=== PATIENT | male | born 1980 | race Caucasian/White ===

== ENCOUNTER 2017-07-25 11:50 | Outpatient (CLI) | payer OTHER ==
--- NOTE | 2017-07-25 18:01 | XRAY Report ---
THREE VIEW RIGHT SHOULDER: 07/25/2017 CLINICAL INDICATION: Pain. FINDINGS: Internal and external rotational views and a scapular Y view of the right shoulder demonstrate no evidence of fracture or dislocation. The joint spaces are preserved. No radiopaque foreign body is seen in the soft tissues. IMPRESSION: NORMAL RIGHT SHOULDER. TD: 07/25/2017 18:00
--- NOTE | 2017-07-25 18:01 | XRAY Report ---
COMPLETE CERVICAL SPINE: 07/25/2017 CLINICAL INDICATION: Neck pain. FINDINGS: AP, lateral, oblique, odontoid views of the cervical spine demonstrate anterior plate and screw fusion spanning C5 through C7. There is no evidence of fracture or hardware complication. The prevertebral soft tissues are unremarkable. IMPRESSION: PREVIOUS LOWER CERVICAL FUSION. NO EVIDENCE OF FRACTURE. TD: 07/25/2017 18:01
== END 2017-07-25 11:51 | disposition home or self-care (01) ==
LOC: DI.S 11:50
PROVIDERS: ATTEND Nurse Practitioner Family
DX: M25.511 Pain in right shoulder (principal); M54.2 Cervicalgia; Z98.1 Arthrodesis status
CPT/HCPCS: 72050

== ENCOUNTER 2017-12-18 19:52 | Emergency (ER) | payer OTHER ==
--- NOTE | 2017-12-18 21:24 | ED Physician Documentation ---
PD HPI NECK PAIN - Stated complaint Stated Complaint: NECK PX - Chief complaint Chief Complaint: Ext Problem - History obtained from History obtained from: Patient - History of Present Illness Timing - onset: How many days ago (2-3) Timing - duration: Days (2-3) Timing - details: Gradual onset, Still present Location: Lower, Left Quality: Pain, Spasm Associated symptoms: No: Fever, Weakness, Numbness Similar symptoms before: Diagnosis (has had neck pains from disc problem in the past. Neck pain often. Has it flare up at times and has gotten Toradol shots to help.) Recently seen: Not recently seen Review of Systems Constitutional: denies: Fever Nose: denies: Rhinorrhea / runny nose, Congestion Throat: denies: Sore throat Cardiac: denies: Chest pain / pressure, Palpitations Respiratory: denies: Cough GI: denies: Abdominal Pain, Nausea, Vomiting Skin: denies: Rash, Lesions Musculoskeletal: reports: Neck pain (does not radiate to arms). denies: Back pain Neurologic: denies: Focal weakness, Numbness PD PAST MEDICAL HISTORY - Past Medical History Past Medical History: Yes Neuro: None Musculoskeletal: Other (neck pain often) - Past Surgical History Neuro: Other - Present Medications Home Medications: Ambulatory Orders Medication Instructions Recorded Confirmed Gabapentin 1 tab PO PRN PRN 12/18/17 12/18/17 Tramadol HCl 50 mg PO Q6H PRN #20 tablet 12/18/17 - Allergies Allergies/Adverse Reactions: Allergies Allergy/AdvReac Type Severity Reaction Status Date / Time No Known Drug Allergies Allergy Verified 12/18/17 20:20 - Social History Does the pt smoke?: No Smoking Status: Never smoker - Immunizations Immunizations are current?: Yes PD ED PE NORMAL - Vitals Vital signs reviewed: Yes - General General: Alert and oriented X 3, Well developed/nourished, Other (appears in pain. has towel around neck to act as collar/brace. Holding neck muscles stiffly. ) - Neck Neck: Supple, no meningeal sign, No adenopathy, Other (left paracervical muscle tenderness. No rash nor sores. ) - Derm Derm: Normal color, Warm and dry, No rash - Neuro Neuro: Alert and oriented X 3, No motor deficit, No sensory deficit, Normal speech Results - Vitals Vitals: Oxygen O2 Source Room air PD MEDICAL DECISION MAKING - ED course Complexity details: re-evaluated patient (did trigger point injection with lido2 % and Kenalog on left lower paracervical muscle/trapezius. ), considered differential, d/w patient - Sepsis Event Vital Signs: Oxygen O2 Source Room air Departure - Departure Disposition: 01 Home, Self Care Clinical Impression: Acute neck pain Condition: Stable Record reviewed to determine appropriate education?: Yes Instructions: ED Neck Pain No Trauma Follow-Up: Edita Espino ARNP [Primary Care Provider] - Prescriptions: Tramadol HCl 50 mg PO Q6H PRN #20 tablet PRN Reason: Pain Comments: Heat and gentle stretching for the neck to reduce spasming. Use some ibuprofen or naproxen twice daily for the next several days. Add the muscle relaxant you have at home if needed for stiffness and spasm. Add hydrocodone from the starter pack in the next day or tramadol prescription if needed for worse pain. Follow-up with your primary care if not improved over the next several days to week. Forms: Activity restrictions Discharge Date/Time: 12/18/17 22:15
[2017-12-18] MEDS ORDERED: KETOROLAC 60 MG/2 ML VIAL IM STA (21:30)
[2017-12-18] MEDS ORDERED: TRIAMCINOLONE 40 MG/ML VIAL IM STA (21:31)
[2017-12-18] MEDS ORDERED: LIDOCAINE 2% 10 ML MDV SUBQ STA (21:31)
[2017-12-18] MEDS ORDERED: HYDROcod/ACET 5/325 Prepack 4 PO STA (21:48)
[2017-12-18 22:15] VITALS: BP 118/85
== END 2017-12-18 22:15 | disposition home or self-care (01) ==
LOC: ED 19:52
DX: M54.2 Cervicalgia (principal)
CPT/HCPCS: 20552; 96372; 99283

== ENCOUNTER 2020-05-13 23:13 | Emergency (ER) | payer OTHER ==
[2020-05-13] MEDS ORDERED: KETOROLAC 30 MG/ML VIAL IVP STA (23:36)
--- NOTE | 2020-05-13 23:39 | ED Physician Documentation ---
PD HPI ABD PAIN - Stated complaint Stated Complaint: STOMACH PX - Chief complaint Chief Complaint: Abd Pain - History obtained from History obtained from: Patient - History of Present Illness Timing - onset: Yesterday Timing - duration: Days (2) Timing - details: Gradual onset, Still present Quality: Sharp, Pain Location: Suprapubic Radiation: Lower back Improved by: Laying still Worsened by: Moving, Position, Palpation Associated symptoms: Nausea, Hematochezia. No: Vomiting Similar symptoms before: Diagnosis (diverticulitis) Recently seen: Clinic - Additional information Additional information: 39-year-old male with a history of diverticulitis twice previously most recently in March of this year has developed suprapubic pain in his lower abdomen and he has had some blood in his stool. He indicates that these pains began yesterday and are similar to what he has had previously with diverticulitis. He had one episode about 5 years ago he had another episode in March of this year and he has been in to see his pigment pusher in follow-up since then. He was noted to have some scar tissue around where the infection was. Review of Systems Constitutional: reports: Myalgias, Fatigue. denies: Fever Eyes: denies: Decreased vision Ears: denies: Ear pain Nose: denies: Congestion Throat: denies: Sore throat Cardiac: denies: Chest pain / pressure, Palpitations Respiratory: denies: Dyspnea, Cough GI: reports: Abdominal Pain, Nausea, Diarrhea, Bloody / black stool : denies: Dysuria, Frequency Skin: denies: Rash Musculoskeletal: reports: Back pain. denies: Neck pain, Extremity pain PD PAST MEDICAL HISTORY - Past Medical History Past Medical History: Yes Neuro: None Endocrine/Autoimmune: Other Musculoskeletal: Chronic back pain, Other Other Past Medical History: Diverticulitis. Cervial fx - Past Surgical History Past Surgical History: Yes Neuro: Other - Present Medications Home Medications: Ambulatory Orders Medication Instructions Recorded Confirmed Gabapentin 1 tab PO PRN PRN 12/18/17 12/18/17 Tramadol HCl 50 mg PO Q6H PRN #20 tablet 12/18/17 Gabapentin 200 mg PO BID #30 capsule 08/18/19 Ciprofloxacin HCl [Cipro] 500 mg PO BID #20 tablet 05/14/20 metroNIDAZOLE [Flagyl] 500 mg PO BID #20 tablet 05/14/20 traMADol [Ultram] 50 - 100 mg PO Q6H PRN #20 tablet 05/14/20 - Allergies Allergies/Adverse Reactions: Allergies Allergy/AdvReac Type Severity Reaction Status Date / Time No Known Drug Allergies Allergy Verified 05/13/20 23:25 - Social History Does the pt smoke?: No Smoking Status: Never smoker Does the pt drink ETOH?: No Does the pt have substance abuse?: Yes Substance Use and Type: Marijuana - Immunizations Immunizations are current?: Yes - POLST Patient has POLST: No PD ED PE NORMAL - Vitals Vital signs reviewed: Yes (hypertensive) - General General: Alert and oriented X 3, No acute distress, Well developed/nourished - HEENT HEENT: Atraumatic, PERRL, EOMI - Neck Neck: Supple, no meningeal sign, No bony TTP - Cardiac Cardiac: RRR, No murmur - Respiratory Respiratory: No respiratory distress, Clear bilaterally - Abdomen Abdomen: Normal bowel sounds, Soft, Non distended, No organomegaly, Other (There is garding tenderness to the lower abdomen bilaterally the upper abdomen is soft and "sore") - Back Back: No CVA TTP, No spinal TTP - Derm Derm: Normal color, Warm and dry, No rash - Extremities Extremities: No deformity, No edema - Neuro Neuro: Alert and oriented X 3, 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, No motor deficit, No sensory deficit, Normal speech Eye Opening: Spontaneous Motor: Obeys Commands Verbal: Oriented GCS Score: 15 - Psych Psych: Normal mood, Normal affect Results - Vitals Vitals: Vital Signs - 24 hr 05/13/20 05/13/20 05/14/20 23:23 23:26 01:25 Temperature 36.9 C 36.9 C 36.8 C Heart Rate 69 69 70 Respiratory 17 17 18 Rate Blood Pressure 143/85 H 143/85 H 143/82 H O2 Saturation 96 96 97 Oxygen O2 Source Room air - Labs Labs: Laboratory Tests 05/13/20 05/13/20 05/13/20 23:34 23:34 23:55 WBC 14.2 H RBC 4.73 Hgb 15.0 Hct 44.0 MCV 93.0 MCH 31.7 H MCHC 34.1 RDW 11.9 L Plt Count 298 MPV 10.0 Neut # (Auto) 11.9 H Lymph # (Auto) 1.2 L [place] # (Auto) 0.9 Eos # (Auto) 0.1 Baso # (Auto) 0.1 Absolute Nucleated RBC 0.00 Nucleated RBC % 0.0 Sodium 137 Potassium 3.9 Chloride 105 Carbon Dioxide 24 Anion Gap 8.0 BUN 19 Creatinine 1.1 Estimated GFR (MDRD) 74 L Glucose 110 H Lactic Acid 0.9 Calcium 8.9 Total Bilirubin 0.7 AST 25 ALT 46 Alkaline Phosphatase 87 Total Protein 7.2 Albumin 4.3 Globulin 2.9 Albumin/Globulin Ratio 1.5 Lipase 31 Urine Color Urine Clarity Urine pH Ur Specific [place] Urine Protein Urine Glucose (UA) Urine Ketones Urine Occult Blood Urine Nitrite Urine Bilirubin Urine Urobilinogen Ur Leukocyte Esterase Ur Microscopic Review Urine Culture Comments 05/13/20 23:55 WBC RBC Hgb Hct MCV MCH MCHC RDW Plt Count MPV Neut # (Auto) Lymph # (Auto) [place] # (Auto) Eos # (Auto) Baso # (Auto) Absolute Nucleated RBC Nucleated RBC % Sodium Potassium Chloride Carbon Dioxide Anion Gap BUN Creatinine Estimated GFR (MDRD) Glucose Lactic Acid Calcium Total Bilirubin AST ALT Alkaline Phosphatase Total Protein Albumin Globulin Albumin/Globulin Ratio Lipase Urine Color YELLOW Urine Clarity CLEAR Urine pH 6.5 Ur Specific [place] 1.025 Urine Protein NEGATIVE Urine Glucose (UA) NEGATIVE Urine Ketones NEGATIVE Urine Occult Blood NEGATIVE Urine Nitrite NEGATIVE Urine Bilirubin NEGATIVE Urine Urobilinogen 0.2 (NORMAL) Ur Leukocyte Esterase NEGATIVE Ur Microscopic Review NOT INDICATED Urine Culture Comments NOT INDICATED - Rads (name of study) CT ab pel with Radiology: Prelim report reviewed (Impression: 1. Sigmoid colon diverticulitis. No evidence of abscess formation or free intraperitoneal air.), EMP read indepedently, See rad report PD MEDICAL DECISION MAKING - ED course Complexity details: reviewed results, re-evaluated patient, considered differential, d/w patient ED course: 39-year-old male with a history of diverticulitis has an episode again of diverticulitis. CT scan reveals evidence of sigmoid diverticulitis and the patient is administered intravenous Cipro and oral Flagyl we will provide him with a course of antibiotic. He has prior long-term use of narcotic prefers not to use narcotic but does not refuse. Departure - Departure Disposition: 01 Home, Self Care Clinical Impression: Diverticulitis of gastrointestinal tract Condition: Stable Instructions: ED Diverticulitis Follow-Up: Vivian Mccauley MD [Physician No Access] - Prescriptions: Ciprofloxacin HCl [Cipro] 500 mg PO BID #20 tablet metroNIDAZOLE [Flagyl] 500 mg PO BID #20 tablet traMADol [Ultram] 50 - 100 mg PO Q6H PRN #20 tablet PRN Reason: Pain
[2020-05-13 23:49] LABS: BASOPHILS # (AUTO) 0.1 10^3/uL (0.0-0.1); BASOPHILS % (AUTO) 0.6 %; EOSINOPHILS # (AUTO) 0.1 10^3/uL (0.0-0.7); EOSINOPHILS % (AUTO) 0.4 %; LYMPHOCYTES # (AUTO) 1.2 10^3/uL (1.5-3.5); LYMPHOCYTES % (AUTO) 8.6 %; MEAN CORPUSCULAR HEMOGLOBIN 31.7 pg (27.0-31.0); MEAN CORPUSCULAR HGB CONC 34.1 g/dL (32.0-36.0); MONOCYTES # (AUTO) 0.9 10^3/uL (0.0-1.0); MONOCYTES % (AUTO) 6.2 %; NEUTROPHILS # (AUTO) 11.9 10^3/uL (1.5-6.6); NEUTROPHILS % (AUTO) 83.7 %; PLT - PLATELET COUNT 298 10^3/uL (130-450); RED BLOOD COUNT 4.73 10^6/uL (4.70-6.10); RED CELL DISTRIBUTION WIDTH 11.9 % (12.0-15.0); WHITE BLOOD COUNT 14.2 x10^3/uL (4.8-10.8)
[2020-05-13 23:59] LABS: BILIRUBIN,URINE NEGATIVE (NEGATIVE); GLUCOSE, URINE (UA) NEGATIVE (NEGATIVE); KETONES,URINE (UA) NEGATIVE (NEGATIVE); LEUKOCYTE ESTERASE, URINE NEGATIVE (NEGATIVE); NITRITE,URINE NEGATIVE (NEGATIVE); OCCULT BLOOD,URINE NEGATIVE (NEGATIVE); PH,URINE 6.5 PH (5.0-7.5); PROTEIN,URINE NEGATIVE (NEGATIVE); UROBILINOGEN,URINE 0.2 (NORMAL) E.U./dL (NORMAL)
[2020-05-14] MEDS ORDERED: IOVERSOL 320 100 ML VIAL IVP ONE ×2 (00:01→00:38)
[2020-05-14 00:02] LABS: ALBUMIN 4.3 g/dL (3.2-5.5); ALBUMIN/GLOBULIN RATIO 1.5 (1.0-2.2); BILIRUBIN,TOTAL 0.7 mg/dL (0.2-1.0); CALCIUM 8.9 mg/dL (8.5-10.3); CREATININE 1.1 mg/dL (0.6-1.2); TOTAL PROTEIN 7.2 g/dL (6.7-8.2)
[2020-05-14 00:02] LABS: CLARITY,URINE CLEAR (CLEAR)
[2020-05-14] MEDS ORDERED: CIPROFLOXACIN 400 MG/200 ML 400 MG/200 ML BAG IV STA (00:43)
[2020-05-14] MEDS ORDERED: SODIUM CHLORIDE 0.9% 1,000 ML IV STA (01:15)
[2020-05-14] MEDS ORDERED: metroNIDAZOLE 250 MG TABLET PO STA (01:15)
[2020-05-14 01:36] VITALS: BP 143/82
--- NOTE | 2020-05-14 09:36 | CT Report ---
PROCEDURE: Abdomen/Pelvis W INDICATIONS: suprapubic pain hx of diverticulitis CONTRAST: IV CONTRAST: Optiray 320 ml: 100 PO CONTRAST: *NO PO CONTRAST TECHNIQUE: After the administration of intravenous contrast, 5 mm thick sections acquired from the diaphragms to the symphysis. 5 mm thick coronal and sagittal reformats were acquired. For radiation dose reducti on, the following was used: automated exposure control, adjustment of mA and/or kV according to abhijeet ent size. COMPARISON: None. FINDINGS: Image quality: Excellent. ABDOMEN: Lung bases: Lung bases are clear. Heart size is normal. Solid organs: Liver and spleen are normal in size and enhancement. Gallbladder is unremarkable. Bi liary system is non dilated. Pancreas enhances normally. No adrenal nodules. Kidneys demonstrate n ormal size and enhancement, without hydronephrosis. Peritoneum and bowel: There is sigmoid diverticulitis. There is minimal fluid adjacent to the sigmoid with inflammatory change adjacent to the sigmoid. Multiple diverticuli are identified. No free air o r abscess cavity. No free fluid or air. Nodes and vessels: No retroperitoneal or mesenteric adenopathy by size criteria. Aorta and inferior vena cava are normal in size. Miscellaneous: No ventral hernias. PELVIS: Genitourinary: Bladder wall thickness is normal. Miscellaneous: No inguinal hernias or adenopathy. Bones: No suspicious bony lesions. No vertebral body compression fractures. IMPRESSION: Acute sigmoid diverticulitis. A preliminary report with the above findings was provided at the time of the study by [facility]. Reviewed by: Jose Gomez MD on 05/14/2020 9:35 AM PST Approved by: Jose Gomez MD on 05/14/2020 9:35 AM PST Station ID: [id number]
== END 2020-05-14 02:15 | disposition home or self-care (01) ==
LOC: ED 23:13
DX: K57.32 Diverticulitis of large intestine without perforation or abscess without bleeding (principal)
CPT/HCPCS: 36415; 74177; 80053; 81003; 83605; 83690; 85025; 87040; 96374; 96375; 99284; A9270; Q9967; 81001; 87086

== ENCOUNTER 2020-06-13 10:24 | Emergency (ER) | payer OTHER ==
--- NOTE | 2020-06-13 11:34 | XRAY Report ---
PROCEDURE: Finger(s) LT INDICATIONS: index sprain TECHNIQUE: AP hand, 3 views of the left finger(s) acquired. COMPARISON: None. FINDINGS: Bones: No fractures or dislocations. No suspicious bony lesions. Chronic appearing punctate calcif ic density projects adjacent to the ulnar styloid of unknown clinical significance. Soft tissues: No suspicious soft tissue calcifications. IMPRESSION: No fracture. If the patient's pain or other symptoms persist, consider further evaluation with MRI. Reviewed by: Dez Pandey MD on 06/13/2020 11:32 AM PST Approved by: Dez Pandey MD on 06/13/2020 11:32 AM PST Station ID: [id number]
--- NOTE | 2020-06-13 11:40 | ED Physician Documentation ---
PD HPI UPPER EXT INJURY - Stated complaint Stated Complaint: LT HAND INJ - Chief complaint Chief Complaint: Trauma Ext - History obtained from History obtained from: Patient - History of Present Illness Location: Left, Finger (index) Type of injury: Twist Timing - onset: How many days ago (11) Timing - duration: Days (11) Timing - details: Abrupt onset, Still present Improved by: Rest, Immobilization Worsened by: Moving, Palpating Associated symptoms: No: Weakness, Numbness, Tingling Contributing factors: No: Anticoagulated Similar symptoms before: Diagnosis (finger sprain) Recently seen: Not recently seen - Additonal information Additional information: 39-year-old male was at work when he caught his left index finger on a railing as he was falling and he tore the finger radially and has pain at the metacarpophalangeal joint and the proximal interphalangeal joint. He has some swelling there this happened about 11 days ago and he is still not able to fully close his fist or use his index finger normally. Review of Systems Constitutional: denies: Fever Respiratory: denies: Cough GI: denies: Nausea, Vomiting, Diarrhea PD PAST MEDICAL HISTORY - Past Medical History Cardiovascular: None Respiratory: None Neuro: None Endocrine/Autoimmune: Other GI: Diverticulitis : None HEENT: None Psych: None Musculoskeletal: Chronic back pain, Other Derm: None - Past Surgical History Past Surgical History: Yes Ortho: Spine surgery Neuro: Other - Present Medications Home Medications: Ambulatory Orders Medication Instructions Recorded Confirmed Gabapentin 1 tab PO PRN PRN 12/18/17 06/13/20 - Allergies Allergies/Adverse Reactions: Allergies Allergy/AdvReac Type Severity Reaction Status Date / Time No Known Drug Allergies Allergy Verified 06/13/20 10:27 - Social History Does the pt smoke?: No Smoking Status: Former smoker Does the pt drink ETOH?: No Does the pt have substance abuse?: Yes Substance Use and Type: Marijuana - Immunizations Immunizations are current?: Yes - POLST Patient has POLST: No PD ED PE NORMAL - Vitals Vital signs reviewed: Yes (Hypertensive) - General General: Alert and oriented X 3, No acute distress, Well developed/nourished - HEENT HEENT: Atraumatic, PERRL, EOMI - Respiratory Respiratory: No respiratory distress - Derm Derm: Normal color, Warm and dry, No rash - Extremities Extremities: No deformity, No edema, Other (There is point tenderness over the metacarpal phalangeal joint of the second digit on the left hand. There is range of motion at that joint with pain. There is pain to the proximal phalange as well as the interphalangeal joint. Mild tenderness over the dorsum of the hand over the distal metacarpa) Results - Vitals Vitals: Vital Signs - 24 hr 06/13/20 10:27 Temperature 36.5 C Heart Rate 58 L Respiratory 16 Rate Blood Pressure 139/91 H O2 Saturation 98 Oxygen O2 Source Room air - Rads (name of study) fingers Radiology: Prelim report reviewed (Impression: No fracture. If the patient's pain or other symptoms persist, consider further evaluation with MRI.), EMP read indepedently, See rad report Procedures - Splint (location) fingers Splint applied by: Tech Type of splint: Metal foam finger splint Other: Patient tolerated well, No complications, Neurovascular intact, Good alignment PD MEDICAL DECISION MAKING - ED course Complexity details: considered differential, d/w patient ED course: 39-year-old male with a sprain to the left index finger has no evidence of fracture on plain films he is placed into a splint immobilizing the PIP and the MCP. Departure - Departure Disposition: 01 Home, Self Care Clinical Impression: Sprain of left index finger Qualifiers: Encounter type: initial encounter Sprain of finger site: metacarpophalangeal joint Qualified Code(s): S63.651A - Sprain of metacarpophalangeal joint of left index finger, initial encounter Condition: Stable Instructions: ED Sprain Finger Follow-Up: [facility] [Provider Group] Forms: Activity restrictions
[2020-06-13 11:55] VITALS: BP 128/84
== END 2020-06-13 12:15 | disposition home or self-care (01) ==
LOC: ED 10:24
DX: S63.651A Sprain of metacarpophalangeal joint of left index finger, initial encounter (principal); X50.1XXA Overexertion from prolonged static or awkward postures, initial encounter; W01.0XXA Fall on same level from slipping, tripping and stumbling without subsequent striking against object, initial encounter; Y99.0 Civilian activity done for income or pay; Z87.891 Personal history of nicotine dependence
CPT/HCPCS: 29130; 99283

== ENCOUNTER 2020-06-20 14:15 | Outpatient (CLI) | payer OTHER ==
--- NOTE | 2020-06-20 14:35 | XRAY Report ---
PROCEDURE: Finger(s) LT INDICATIONS: SPRAIN OF LEFT INDEX FINGER TECHNIQUE: PA view of the hand and 2 views of the index finger acquired. COMPARISON: Finger radiographs dated 06/13/2020 FINDINGS: Bones: No acute fractures or dislocations. No suspicious bony lesions. Soft tissues: No suspicious soft tissue calcifications. IMPRESSION: No acute osseous abnormality. If symptoms persist with conservative management, further evaluation wi th CT or MRI may be obtained. Reviewed by: Junior Garcia MD on 06/20/2020 2:34 PM PST Approved by: Junior Garcia MD on 06/20/2020 2:34 PM PST Station ID: [id number]
== END 2020-06-20 23:59 | disposition home or self-care (01) ==
LOC: DI.S 14:15
PROVIDERS: ATTEND Physician Assistant Medical
DX: S63.691A Other sprain of left index finger, initial encounter (principal)

== ENCOUNTER 2022-08-29 20:38 | Emergency (ER) | payer OTHER ==
[2022-08-29] MEDS ORDERED: ONDANSETRON 4 MG/2 ML VIAL IVP STA ×2 (20:55→21:48)
[2022-08-29 21:15] LABS: BASOPHILS # (AUTO) 0.1 10^3/uL (0.0-0.1); BASOPHILS % (AUTO) 0.5 %; EOSINOPHILS # (AUTO) 0.1 10^3/uL (0.0-0.7); EOSINOPHILS % (AUTO) 0.6 %; HCT - HEMATOCRIT 45.9 % (42.0-52.0); LYMPHOCYTES # (AUTO) 1.8 10^3/uL (1.5-3.5); LYMPHOCYTES % (AUTO) 13.6 %; MEAN CORPUSCULAR HEMOGLOBIN 31.7 pg (27.0-31.0); MEAN CORPUSCULAR HGB CONC 34.9 g/dL (32.0-36.0); MEAN CORPUSCULAR VOLUME 91.1 fL (80.0-94.0); MEAN PLATELET VOLUME 9.9 fL (7.4-11.4); MONOCYTES # (AUTO) 0.8 10^3/uL (0.0-1.0); MONOCYTES % (AUTO) 5.7 %; NEUTROPHILS # (AUTO) 10.6 10^3/uL (1.5-6.6); NEUTROPHILS % (AUTO) 79.3 %; PLT - PLATELET COUNT 384 10^3/uL (130-450); RED BLOOD COUNT 5.04 10^6/uL (4.70-6.10); RED CELL DISTRIBUTION WIDTH 11.9 % (12.0-15.0); WHITE BLOOD COUNT 13.4 x10^3/uL (4.8-10.8)
[2022-08-29 21:42] LABS: ALBUMIN 4.4 g/dL (3.2-5.5); ALBUMIN/GLOBULIN RATIO 1.2 (1.0-2.2); BILIRUBIN,TOTAL 0.5 mg/dL (0.2-1.0); CALCIUM 9.3 mg/dL (8.5-10.3); CREATININE 0.9 mg/dL (0.6-1.2); TOTAL PROTEIN 8.1 g/dL (6.7-8.2)
[2022-08-29] MEDS ORDERED: SODIUM CHLORIDE 0.9% 1,000 ML IV STA (21:48)
[2022-08-29] MEDS ORDERED: HYDROmorphone 1 MG/ML CARPUJECT IVP STA ×2 (21:48→23:16)
--- NOTE | 2022-08-29 21:50 | ED Physician Documentation ---
History of Present Illness - Stated complaint Stated Complaint: ABD PX - Chief complaint Chief Complaint: Abd Pain - Additonal information Additional information: Patient 41-year-old male presenting to the emergency department with left lower quadrant abdominal pain. Began 2-3 days ago. Reports history of diverticulitis. States he has a history of colon polyps. Denies any abdominal surgeries. Denies fever, nausea, vomiting, blood in stool but does endorse for diarrhea. Reports that he does not like come to the hospital which is why he waited to come in however his pain got worse today. Review of Systems Unable to obtain: Unresponsive Constitutional: denies: Fever Eyes: denies: Loss of vision Ears: denies: Loss of hearing Nose: denies: Rhinorrhea / runny nose Throat: denies: Dental pain / toothache Cardiac: denies: Chest pain / pressure Respiratory: denies: Dyspnea GI: reports: Abdominal Pain, Diarrhea : denies: Dysuria Skin: denies: Rash Musculoskeletal: denies: Neck pain Neurologic: denies: Generalized weakness Psychiatric: denies: Depressed PD PAST MEDICAL HISTORY - Past Medical History Cardiovascular: None Respiratory: None Neuro: None Endocrine/Autoimmune: Other GI: Diverticulitis : None HEENT: None Psych: None Musculoskeletal: Chronic back pain, Other Derm: None - Past Surgical History Past Surgical History: Yes Ortho: Spine surgery Neuro: Other - Present Medications Home Medications: Ambulatory Orders Medication Instructions Recorded Confirmed Gabapentin 1 tab PO PRN PRN 12/18/17 06/13/20 HYDROcod/ACETAM 5/325 [[place]ul[place] 5/325] 1 - 2 ea PO Q6H PRN #14 tablet 08/29/22 levoFLOXacin [Levofloxacin] 750 mg PO DAILY #7 tablet 08/29/22 metroNIDAZOLE [Flagyl] 500 mg PO TID #21 tab 08/29/22 - Allergies Allergies/Adverse Reactions: Allergies Allergy/AdvReac Type Severity Reaction Status Date / Time No Known Drug Allergies Allergy Verified 08/29/22 20:53 - Social History Does the pt smoke?: No Smoking Status: Former smoker Does the pt drink ETOH?: No Does the pt have substance abuse?: Yes - Immunizations Immunizations are current?: Yes - POLST Patient has POLST: No PD ED PE NORMAL - Vitals Vital signs reviewed: Yes - General General: Alert and oriented X 3, No acute distress - HEENT HEENT: Atraumatic, PERRL, EOMI, Ears normal, Moist mucous membranes, Pharynx benign - Neck Neck: Supple, no meningeal sign, No bony TTP, No adenopathy, Thyroid normal - Cardiac Cardiac: RRR, No gallop - Respiratory Respiratory: No respiratory distress - Abdomen Abdomen: Normal bowel sounds, Other (Left lower quadrant tenderness) - Male Male : Deferred - Rectal Rectal: Deferred - Derm Derm: Normal color - Extremities Extremities: No deformity - Neuro Neuro: Alert and oriented X 3, 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6 H Lymph # (Auto) 1.8 Iron # (Auto) 0.8 Eos # (Auto) 0.1 Baso # (Auto) 0.1 Absolute Nucleated RBC 0.00 Nucleated RBC % 0.0 Sodium 139 Potassium 4.0 Chloride 107 Carbon Dioxide 23 Anion Gap 9.0 BUN 18 Creatinine 0.9 Estimated GFR (MDRD) 92 Glucose 96 Calcium 9.3 Total Bilirubin 0.5 AST 26 ALT 44 Alkaline Phosphatase 92 Total Protein 8.1 Albumin 4.4 Globulin 3.7 Albumin/Globulin Ratio 1.2 Lipase 37 Urine Color YELLOW Urine Clarity CLEAR Urine pH 5.5 Ur Specific [place] >=1.030 H Urine Protein NEGATIVE Urine Glucose (UA) NEGATIVE Urine Ketones NEGATIVE Urine Occult Blood NEGATIVE Urine Nitrite NEGATIVE Urine Bilirubin NEGATIVE Urine Urobilinogen 0.2 (NORMAL) Ur Leukocyte Esterase NEGATIVE Ur Microscopic Review NOT INDICATED Urine Culture Comments NOT INDICATED PD Medical Decision Making - ED course Complexity details: reviewed results, d/w patient Drug Therapy Requiring Monitoring for Toxicity: IV hydromorphone ED course: Patient 41-year-old male presenting to the emergency department with left lower quadrant abdominal pain. Afebrile, hemodynamically stable. Left lower quadrant tenderness without indications of peritonitis on exam. Labs demonstrate leukocytosis but no significant electrolyte abnormality. CT demonstrates acute diverticulitis without complication such as abscess or perforation. Patient given hydromorphone and IV hydration in the emergency department for symptomatic management. Tolerated dose of levofloxacin and Flagyl.Will discharge with medication for pain control and levofloxacin/Flagyl. Encourage careful follow- up with primary care. Clear return precautions given. Departure - Departure Disposition: Home, Self Care Clinical Impression: Diverticulitis Instructions: ED Diverticulitis Prescriptions: metroNIDAZOLE [Flagyl] 500 mg PO TID #21 tab levoFLOXacin [Levofloxacin] 750 mg PO DAILY #7 tablet HYDROcod/ACETAM 5/325 [Hulen 5/325] 1 - 2 ea PO Q6H PRN #14 tablet PRN Reason: Pain Comments: Thank you for allowing us to care for you today at [facility]. Prescription sent electronically to [facility] in [place]. Today in the emergency department you are diagnosed with acute diverticulitis. Attached is some information about this condition. I have sent medication for pain control as well as oral antibiotics to your preferred pharmacy. Please make a follow-up appoint with your primary care doctor. If it anytime you develop any new or worsening symptoms please not hesitate to return. Discharge Date/Time: 08/29/22 23:49
[2022-08-29 22:09] LABS: BILIRUBIN,URINE NEGATIVE (NEGATIVE); CLARITY,URINE CLEAR (CLEAR); GLUCOSE, URINE (UA) NEGATIVE (NEGATIVE); KETONES,URINE (UA) NEGATIVE (NEGATIVE); LEUKOCYTE ESTERASE, URINE NEGATIVE (NEGATIVE); NITRITE,URINE NEGATIVE (NEGATIVE); OCCULT BLOOD,URINE NEGATIVE (NEGATIVE); PH,URINE 5.5 PH (5.0-7.5); PROTEIN,URINE NEGATIVE (NEGATIVE); UROBILINOGEN,URINE 0.2 (NORMAL) E.U./dL (NORMAL)
[2022-08-29] MEDS ORDERED: iohexoL-300 100 ML VIAL ONE (22:16)
--- NOTE | 2022-08-29 23:09 | CT Report ---
PROCEDURE: ABDOMEN/PELVIS W INDICATIONS: LLQ abd pain CONTRAST: 100mL Omni 300 TECHNIQUE: After the administration of intravenous contrast, 5 mm thick sections acquired from the diaphragms to the symphysis. 5 mm thick coronal and sagittal reformats were acquired. For radiation dose reducti on, the following was used: automated exposure control, adjustment of mA and/or kV according to abhijeet ent size. COMPARISON: CT abdomen pelvis 05/14/2020. FINDINGS: Image quality: Excellent. Lung bases:There is mild dependent atelectasis bilaterally. Heart: Heart is normal in size. ABDOMEN: Liver: No mass lesion. Gallbladder: Within normal limits without calcified gallstones. Biliary ducts: No biliary ductal dilatation. Pancreas: Unremarkable. Spleen: Normal in size. Adrenal Glands: No adrenal nodules. Kidneys and Ureters: No hydronephrosis. Stomach and Bowel: Stomach and small bowel loops are normal in caliber and wall thickness. The appen kieran is normal. There is colonic diverticulosis with associated diverticular and segmental colonic wal l thickening in the proximal sigmoid colon with pericolonic fat stranding consistent with acute diver ticulitis. Peritoneum:There is a small amount of free fluid in the pelvis which is likely reactive. No discrete diverticular abscess or macroscopic free air. Ventral Wall: No hernia. Abdominal Nodes: No retroperitoneal or mesenteric adenopathy by size criteria. Vessels: Aorta and inferior vena cava are normal in size. PELVIS: Pelvic Organs: Unremarkable. Bladder: Unremarkable. Pelvic Nodes: No enlarged lymph nodes. Miscellaneous: No inguinal hernias. Bones: Visualized osseous structures demonstrate no suspicious lesions. IMPRESSION: 1. Acute diverticulitis in the proximal sigmoid colon without evidence of diverticular abscess or mac roscopic free air. Reviewed by: Maged Ruth MD on 08/29/2022 11:08 PM PDT Approved by: Maged Ruth MD on 08/29/2022 11:08 PM PDT Station ID: [id number]
[2022-08-29] MEDS ORDERED: levoFLOXacin 250 MG TABLET PO STA (23:16)
[2022-08-29] MEDS ORDERED: metroNIDAZOLE 250 MG TABLET PO STA (23:16)
[2022-08-29] MEDS ORDERED: HYDROcod/ACETAM 5/325 MG TABLET PO STA (23:33)
[2022-08-29 23:49] VITALS: BP 126/95
[2022-08-30] MEDS ORDERED: iohexoL-300 100 ML VIAL IVP ONE (00:37)
== END 2022-08-29 23:49 | disposition home or self-care (01) ==
LOC: ED 20:38
DX: Z87.891 Personal history of nicotine dependence (principal); K57.32 Diverticulitis of large intestine without perforation or abscess without bleeding
CPT/HCPCS: 36415; 74177; 80053; 81003; 83690; 85025; 96374; 96375; 96376; 99283; 99284; A9270; J1170; Q9967; 81001; 87086

== ENCOUNTER 2023-08-24 08:00 | Outpatient (CLI) | payer OTHER ==
--- NOTE | 2023-08-24 12:27 | XRAY Report ---
PROCEDURE: Wrist 3+V LT INDICATIONS: LEFT WRIST SPRAIN TECHNIQUE: 4 views of the wrist were acquired. COMPARISON: None. FINDINGS: Bones: No fractures or dislocations. No suspicious bony lesions. Soft tissues: No suspicious soft tissue calcifications or masses. IMPRESSION: No acute bony abnormality. If pain persists with conservative management, consider repeat x-ray in 10 -14 days or cross-sectional imaging. Reviewed by: Grey Pandey MD on 08/24/2023 12:26 PM PST Approved by: Grey Pandey MD on 08/24/2023 12:26 PM PST Station ID: [id number]
== END 2023-08-24 23:59 | disposition home or self-care (01) ==
LOC: DI.S 08:00
PROVIDERS: ATTEND Physician Assistant Medical
DX: S63.592A Other specified sprain of left wrist, initial encounter (principal)